=== PATIENT | female | born 1985 | race Caucasian/White ===

== ENCOUNTER 2016-10-01 14:40 | Emergency (ER) | payer MEDICAID ==
--- NOTE | 2016-10-01 15:13 | ER Document Report ---
HPI - HPI Patient complains to provider of: BACK PAIN, hip pain Onset: This afternoon Onset/Duration: Persistent Quality of pain: Achy Severity: Severe Pain Level: 5 Context: Patient presents to the emergency department with complaints of right hip and low back pain. Patient reports she fell when she was attempting to step over a baby gate at home. She reports she fell onto her right side onto the kitchen floor and now her low back and hip hurts. She denies urinary or bowel incontinence or retention. She denies numbness or tingling. She has no change in LOC. Associated Symptoms: None Exacerbated by: Movement, Walking Relieved by: Denies Similar symptoms previously: No Recently seen / treated by doctor: No - REPRODUCTIVE Reproductive: DENIES: : - DERM Skin Color: Normal Past Medical History - General Information source: Patient Last Menstrual Period: depo - Social History Smoking Status: Current Every Day Smoker Cigarette use (# per day): Yes Frequency of alcohol use: Occasional Drug Abuse: None Occupation: [employer] Family History: Reviewed & Not Pertinent Patient has suicidal ideation: No Patient has homicidal ideation: No Neurological Medical History: Reports: Hx Migraine Renal/ Medical History: Denies: Hx Peritoneal Dialysis Past Surgical History: Reports: Hx Section, Hx Dilation and Curettage, Hx Gynecologic Surgery - 9 - Immunizations Hx Diphtheria, Pertussis, Tetanus Vaccination: No - unknown Vertical Provider Document - CONSTITUTIONAL Agree With Documented VS: Yes Exam Limitations: No Limitations General Appearance: WD/WN, Mild Distress - winces with palpation to hip and right side back - INFECTION CONTROL TRAVEL OUTSIDE OF THE [place] IN LAST 30 DAYS: No - HEENT HEENT: Atraumatic, Normocephalic - NECK Neck: Supple - RESPIRATORY Respiratory: Breath Sounds Normal, No Respiratory Distress O2 Sat by Pulse Oximetry: 98 - CARDIOVASCULAR Cardiovascular: Regular Rate - BACK Back: Normal Inspection - No obvious deformity complains of right-sided low back pain that radiates down her buttocks. Good distal movement and sensation no weakness. - MUSCULOSKELETAL/EXTREMETIES Musculoskeletal/Extremeties: Tender - Complaints of right hip pain with palpation. no erythema, no ecchymosis, no obvious deformity or swelling. - NEURO Level of Consciousness: Awake, Alert, Appropriate Motor/Sensory: No Motor Deficit - DERM Integumentary: Warm, Dry Adult Front & Back Diagram: 1 - reports ttp 2 - reports ttp 3 - radiates down her right buttocks Course - Re-evaluation Re-evalutation: 10/01/16 Negative hip x-ray no signs or symptoms of injury. Patient was instructed on medications importance of rest. Patient wasn't instructed to follow up with primary care provider for continued pain. She verbalized understanding to all instructions. - Vital Signs Vital signs: Temp Pulse Resp BP Pulse Ox 98.6 F 93 16 117/73 98 10/01/16 14:55 10/01/16 14:55 10/01/16 14:55 10/01/16 14:55 10/01/16 14:55 - Diagnostic Test Radiology reviewed: Image reviewed, Reports reviewed - neg Discharge - Discharge Clinical Impression: Right hip pain Low back pain Qualifiers: Chronicity: acute Back pain laterality: right Sciatica presence: without sciatica Qualified Code(s): M54.5 - Low back pain Condition: Stable Disposition: HOME, SELF-CARE Instructions: Ice Packs ([facility]), Low Back Pain ([facility]), Muscle Relaxers ([facility]), Warm Packs ([facility]), Oral Narcotic Medication ([facility]), Anti-Inflammatory Medication ( [facility]) Additional Instructions: *You have been evaluated for low back pain right hip pain *Take medication as prescribed *Rest/Ice packs 20 minutes on 20 minutes off *Follow up with a primary care provider within one week for recheck *Return to ED for worsening condition, changes, needs Prescriptions: Cyclobenzaprine HCl [Flexeril 5 mg Tablet] 5 mg PO TID #15 tablet Hydrocodone/Acetaminophen [[place] 5-325 Tablet] 1 each PO QID #15 tablet Naproxen 500 mg PO BID #20 tablet Forms: Return to Work Referrals: ANJELICA CHU MD [Primary Care Provider] - Follow up in 3-5 days
[2016-10-01] MEDS ORDERED: METHOCARBAMOL 750 MG TABLET PO ONE (15:22)
[2016-10-01] MEDS ORDERED: IBUPROFEN 800 MG TABLET PO ONE (15:22)
[2016-10-01 16:38] VITALS: BP 99/53
== END 2016-10-01 16:35 | disposition home or self-care (01) ==
LOC: ER 14:40
DX: M25.551 Pain in right hip (principal); M54.5 Low back pain; M54.9 Dorsalgia, unspecified; W19.XXXA Unspecified fall, initial encounter; Y92.000 Kitchen of unspecified non-institutional (private) residence as the place of occurrence of the external cause; F17.210 Nicotine dependence, cigarettes, uncomplicated
CPT/HCPCS: 99283; 73502; J3490 ×2

== ENCOUNTER 2016-12-30 21:51 | Emergency (ER) | payer MEDICAID ==
[2016-12-30] MEDS ORDERED: LIDOCAINE 2% INJ (20 MG/ML) 20 ML MDV INJ ONE (23:40)
[2016-12-30] MEDS ORDERED: BUPIVACAINE HCL 0.5 % INJ/PF 30 ML SDV INJ ONE (23:41)
--- NOTE | 2016-12-30 23:44 | ER Document Report ---
ED General - General Chief Complaint: Neck Pain >24hrs old Stated Complaint: NECK PAIN Time Seen by Provider: 12/30/16 23:35 Notes: Patient is a pleasant 31-year-old female presents with complaint of pain on the left side of her neck. Says pain is been there for about a week. He was initially on the right side of her neck. She saw Dr. López, her neurologist, who performed a Botox injection into the right side. Pain relieved in the right side but now is on the left side. Pain is mostly just below the occiput over the left cervical paraspinal musculature but then radiates down to her left upper back. No weakness or numbness into the arm. No fevers. No headache. No other complaints at this time. No recent trauma. - Related Data Allergies/Adverse Reactions: No Known Allergies Allergy (Verified 12/30/16 22:28) Past Medical History - Social History Smoking Status: Unknown if Ever Smoked Frequency of alcohol use: None Drug Abuse: None Family History: Reviewed & Not Pertinent Neurological Medical History: Reports: Hx Migraine Renal/ Medical History: Denies: Hx Peritoneal Dialysis Past Surgical History: Reports: Hx Section, Hx Dilation and Curettage, Hx Gynecologic Surgery - 9 - Immunizations Hx Diphtheria, Pertussis, Tetanus Vaccination: No - unknown Review of Systems - Review of Systems Notes: My Normal Review Basic REVIEW OF SYSTEMS: CONSTITUTIONAL : Denies fever, chills, or sweats. Denies recent illness. EENT: Denies eye, ear, throat, or mouth pain or symptoms. Denies nasal or sinus congestion. MUSCULOSKELETAL: neck pain SKIN: Denies rash or skin lesions. NEUROLOGICAL: Denies altered mental status or loss of consciousness. Denies headache. Denies weakness or paralysis or loss of use of either side. Denies problems with gait or speech. Denies sensory or motor loss. ALL OTHER SYSTEMS REVIEWED AND NEGATIVE. Physical Exam - Vital signs Vitals: Temp Pulse Resp BP Pulse Ox 98.3 F 88 20 115/65 99 12/30/16 22:28 12/30/16 22:28 12/30/16 22:28 12/30/16 22:28 12/30/16 22:28 - Notes Notes: General Appearance: Well nourished, alert, cooperative, no acute distress, mild obvious discomfort. Vitals: reviewed, See vital signs table. Head: no swelling or tenderness to the head Eyes: PERRL, EOMI, Conjuctiva clear Neck: Pain to palpation over the left cervical paraspinal musculature. Patient has trigger point just below the left occiput over the left cervical paraspinal musculature. Some mild tenderness that tracks down into the left upper back. No redness or swelling. Extremities: Normal strength and sensation and perfusion in the left upper extremity. No edema. Skin: warm, dry, appropriate color, no rash Neuro: speech clear, oriented x 3, normal affect, responds appropriately to questions. Course - Vital Signs Vital signs: Temp Pulse Resp BP Pulse Ox 98.3 F 88 20 115/65 99 12/30/16 22:28 12/30/16 22:28 12/30/16 22:28 12/30/16 22:28 12/30/16 22:28 Discharge - Discharge Clinical Impression: Neck pain Condition: Good Disposition: HOME, SELF-CARE Additional Instructions: Please return to the ER immediately if you have fevers, worsening pain, numbness or weakness into your arm or hand, or if you feel unwell. Please follow up with Dr. López in 2-3 days for reevaluation. Prescriptions: Metaxalone [Skelaxin 800 mg Tablet] 800 mg PO ASDIR PRN #20 tablet PRN Reason:
[2016-12-31] MEDS ORDERED: METAXALONE 800 MG TABLET PO ONE (00:29)
[2016-12-31 02:12] VITALS: BP 121/60
== END 2016-12-31 01:40 | disposition home or self-care (01) ==
LOC: ER 21:51
PROC: 3E023BZ Introduction of Anesthetic Agent into Muscle, Percutaneous Approach (ICD-10-PCS; principal; 2016-12-30)
DX: M54.2 Cervicalgia (principal)
CPT/HCPCS: 99283; 20552; J3490 ×2